=== PATIENT | female | born 1965 | race African-American/Black ===

== ENCOUNTER 2017-07-01 00:46 | Emergency (ER) | payer OTHER ==
[2017-07-01] MEDS ORDERED: Bisacodyl 5 MG TAB ONE (01:13)
== END 2017-07-01 01:18 | disposition home or self-care (01) ==
LOC: NAV ERS 00:46
DX: K58.9 Irritable bowel syndrome, unspecified (principal); I10 Essential (primary) hypertension; E78.5 Hyperlipidemia, unspecified; F32.9 Major depressive disorder, single episode, unspecified; F17.210 Nicotine dependence, cigarettes, uncomplicated; Z79.899 Other long term (current) drug therapy
CPT/HCPCS: 99283

== ENCOUNTER 2017-12-19 21:44 | Emergency (ER) | payer OTHER ==
--- NOTE | 2017-12-19 22:33 | RAD ---
TWO VIEW CHEST: 12/19/17 INDICATION: Cough. FINDINGS: There is borderline size of the cardiac silhouette. No effusion, consolidation, or pneumothorax. Osse ous structures are intact. IMPRESSION: No focal consolidation. POS: [facility]
--- NOTE | 2017-12-19 22:35 | RAD ---
TWO VIEW NECK SOFT TISSUE SERIES: 12/19/17 INDICATION: Ingested food with possible aspiration of foreign body. FINDINGS: There is no abnormal distention of the hypopharyngeal airway. The imaged upper tracheal air column is patent. No abnormal thickening of prevertebral soft tissues. IMPRESSION: No definite acute abnormality. POS: [facility]
== END 2017-12-19 22:40 | disposition home or self-care (01) ==
LOC: NAV ERS 21:44
DX: S10.11XA Abrasion of throat, initial encounter (principal); E78.5 Hyperlipidemia, unspecified; I10 Essential (primary) hypertension; Z91.14 Patient's other noncompliance with medication regimen; F32.9 Major depressive disorder, single episode, unspecified; Z87.891 Personal history of nicotine dependence; Z79.899 Other long term (current) drug therapy; X58.XXXA Exposure to other specified factors, initial encounter
CPT/HCPCS: 70360; 71046; 99283

== ENCOUNTER 2018-08-02 20:42 | Emergency (ER) | payer OTHER ==
--- NOTE | 2018-08-02 21:33 | RAD ---
LEFT KNEE: 08/02/18 Four views. HISTORY: Knee pain. Joint spaces appear normally preserved. No significant degenerative change. No fracture or acute abn ormality. There is suggestion of small joint effusion in the suprapatellar region. IMPRESSION: Evidence of small joint effusion. No osseous abnormality. POS: [facility]
[2018-08-02] MEDS ORDERED: Ketorolac Tromethamine 60 MG/2 ML VIAL ONE (21:49)
== END 2018-08-02 22:10 | disposition home or self-care (01) ==
LOC: NAV ERS 20:42
DX: M25.462 Effusion, left knee (principal); E78.5 Hyperlipidemia, unspecified; I10 Essential (primary) hypertension; F32.9 Major depressive disorder, single episode, unspecified; Z87.891 Personal history of nicotine dependence; Z79.899 Other long term (current) drug therapy
CPT/HCPCS: 96372; J1885

== ENCOUNTER 2019-05-24 17:17 | Emergency (ER) | payer OTHER ==
[2019-05-24] MEDS ORDERED: Ibuprofen 200 MG TAB ONE (17:38)
--- NOTE | 2019-05-24 17:59 | RAD ---
EXAM: CHEST TWO VIEWS 05/24/2019 5:56 PM HISTORY: Cough and chest pain COMPARISON: December 19, 2017 FINDINGS: Lungs: No airspace consolidation is evident. There is an area of peripheral subsegmental volume loss in the right lower lobe. Heart: Normal in size and contour. Pulmonary Vessels: Normal. Costophrenic Angles: Clear. Pneumothorax: None. Osseous Structures: Intact. Additional Findings: None. IMPRESSION: No significant acute intrathoracic disease.
== END 2019-05-24 18:38 | disposition home or self-care (01) ==
LOC: NAV ERS 17:17
DX: J42 Unspecified chronic bronchitis (principal); M54.5 Low back pain; E78.5 Hyperlipidemia, unspecified; E78.00 Pure hypercholesterolemia, unspecified; I10 Essential (primary) hypertension; F32.9 Major depressive disorder, single episode, unspecified; Z87.891 Personal history of nicotine dependence; Z79.899 Other long term (current) drug therapy
CPT/HCPCS: 71046; 87081; 87430; 87804; 94640; J7620

== ENCOUNTER 2020-02-09 12:01 | Emergency (ER) | payer OTHER ==
[2020-02-09] MEDS ORDERED: Tetracaine HCl 0.5% Ophth Soln 2 ML Bottle ONE (12:43)
[2020-02-09] MEDS ORDERED: Ibuprofen 200 MG TAB ONE (12:43)
== END 2020-02-09 13:10 | disposition home or self-care (01) ==
LOC: NAV ERS 12:01
DX: H11.32 Conjunctival hemorrhage, left eye (principal); I10 Essential (primary) hypertension; E78.5 Hyperlipidemia, unspecified; E78.00 Pure hypercholesterolemia, unspecified; F32.9 Major depressive disorder, single episode, unspecified; F17.210 Nicotine dependence, cigarettes, uncomplicated
CPT/HCPCS: 99282

== ENCOUNTER 2023-02-28 19:44 | Emergency (ER) | payer OTHER ==
[2023-02-28] MEDS ORDERED: Amlodipine 5 MG TAB ONE (20:17)
[2023-02-28] MEDS ORDERED: Methocarbamol 500 MG TAB ONE (20:17)
[2023-02-28] MEDS ORDERED: traMADol HCl 50 MG TAB ONE (20:20)
[2023-02-28 20:54] LABS: #Basophils 0.1 thou/uL (0.0-0.2); #Eosinphils 0.1 thou/uL (0.0-0.7); #Lymphocytes 2.3 thou/uL (1.20-3.40); #Monocytes 0.3 thou/uL (0.11-0.59); #Neutrophils 2.5 thou/uL (1.40-6.50); %Eosinophils 1.1 % (0.0-10.0); %Lymphocytes 43.9 % (21.0-51.0); Hematocrit 38.4 % (36.0-47.0); Hemoglobin 13.1 g/dL (12.0-16.0); Mean Corpuscular HGB CONC 34.2 g/dL (32.0-36.0); Mean Corpuscular Volume 87.9 fl (78.0-98.0); Mean Platelet Volume 6.2 fL (7.4-10.4); Platelet Count 406 10x3/uL (130-400); RBC Distribution Width 13.3 % (11.5-14.5); Red Blood Cell (RBC) Count 4.37 mill/uL (4.20-5.40); White Blood Cell (WBC) Count 5.3 10x3/uL (4.8-10.8)
[2023-02-28 21:02] LABS: ALT (SGPT) 9 U/L (8-55); AST (SGOT) 16 U/L (5-34); Albumin 4.4 g/dL (3.5-5.0); Alkaline Phosphatase 79 U/L (40-110); Anion Gap 18 mmol/L (10-20); BUN (Urea Nitrogen) 6 mg/dL (9.8-20.1); Bilirubin, Total 0.4 mg/dL (0.2-1.2); Calc. Creatinine Clearance 0 mL/min (70-130); Calcium 10.1 mg/dL (7.8-10.44); Carbon Dioxide 19 mmol/L (22-29); Chloride 107 mmol/L (98-107); Estimated GFR 89; Globulin 3.1 g/dL (2.4-3.5); Glucose 104 mg/dL (70-105); Potassium 3.2 mmol/L (3.5-5.1); Protein, Total 7.5 g/dL (6.0-8.3); Sodium 141 mmol/L (136-145)
[2023-02-28 21:03] LABS: Troponin I 0.022 ng/mL (< 0.028)
[2023-02-28] MEDS ORDERED: Ketorolac Tromethamine 30 MG/ML VIAL ONE (21:14)
[2023-02-28] MEDS ORDERED: Gabapentin 100 MG CAP PO SCH (21:30)
== END 2023-02-28 21:35 | disposition home or self-care (01) ==
LOC: NAV ERS 19:44
DX: M79.602 Pain in left arm (principal); E78.00 Pure hypercholesterolemia, unspecified; I10 Essential (primary) hypertension; F17.210 Nicotine dependence, cigarettes, uncomplicated; Z79.899 Other long term (current) drug therapy
CPT/HCPCS: 72125; 80053; 84484; 85025; 93005; 96374; J1885

== ENCOUNTER 2023-04-30 17:36 | Emergency (ER) | payer OTHER ==
[2023-04-30] MEDS ORDERED: predniSONE 20 MG TAB ONE (18:32)
== END 2023-04-30 18:50 | disposition home or self-care (01) ==
LOC: NAV ERS 17:36
DX: H92.03 Otalgia, bilateral (principal); I10 Essential (primary) hypertension
CPT/HCPCS: 99283; J7512